=== PATIENT | female | born 1985 ===

== ENCOUNTER 2017-11-16 23:08 | Observation (INO) | payer MEDICAID ==
--- NOTE | 2017-11-16 23:59 | OBPROG ---
Labor Progress Note Assessment/Plan: Assessment: IUP at 22+wks vaginal bleeding - scant post coital Plan: d/c home 11/16/17 23:56 Subjective/Intrapartum Course: 11/16/17 23:57 Pt reports small, drop size clot in toilet this evening. No cramps. Sex 2 days ago. +FM. no blood on perineum or clothing - FHR Assessment Z[place]ala FHR (bpm): 140 FHR Pattern Variability: Moderate FHR Category: 1 (reassuring monitoring for gestation) Oxytocin Orders Assessment - Pre-Induction/Augmentation Assessment Gestational Age: 22 week(s) and 4 day(s) ICD10 Worksheet Patient Problems: Problems Problem Status Onset Second trimester bleeding Acute
== END 2017-11-17 00:11 | disposition home or self-care (01) ==
LOC: FLD 23:08
PROVIDERS: ADMIT Obstetrics & Gynecology; ATTEND Obstetrics & Gynecology
DX: N93.0 Postcoital and contact bleeding (principal); Z3A.22 22 weeks gestation of pregnancy
CPT/HCPCS: G0378

== ENCOUNTER 2017-11-24 18:16 | Observation (INO) | payer MEDICAID | END 2017-11-24 20:20 | disposition home or self-care (01) | LOC: FLD 18:16 | PROVIDERS: ADMIT Obstetrics & Gynecology; ATTEND Obstetrics & Gynecology | DX: O46.92 Antepartum hemorrhage, unspecified, second trimester (principal); Z3A.23 23 weeks gestation of pregnancy ==

== ENCOUNTER 2018-03-05 02:57 | Inpatient (IN) | payer MEDICAID ==
[2018-03-05] MEDS ORDERED: IBUPROFEN 600 MG TAB PO PRN (03:45)
[2018-03-05] MEDS ORDERED: OLIVE OIL 118 ML BTL MISC PRN (03:45)
[2018-03-05] MEDS ORDERED: EPSOM SALT 454 GM TP PRN (03:45)
[2018-03-05] MEDS ORDERED: LIDOCAINE 1% 300 MG/30 ML SDV SC PRN (03:45)
[2018-03-05] MEDS ORDERED: TERBUTALINE SULFATE 1 MG/ML VIAL IV PRN (03:45)
[2018-03-05] MEDS ORDERED: MISOPROSTOL 200 MCG TAB PR PRN (03:45)
[2018-03-05] MEDS ORDERED: OXYTOCIN/RINGERS LACTATE 1,000 ML IV PRN (03:45)
[2018-03-05] MEDS: LR 1,000 ML IV PRN ×2 (04:00→08:33)
[2018-03-05] MEDS ORDERED: LIDOCAINE 1% 300 MG/30 ML SDV ONE (04:07)
[2018-03-05] MEDS ORDERED: OLIVE OIL 118 ML BTL ONE (04:07)
[2018-03-05] MEDS ORDERED: AMMONIA AROMATIC 1 EACH AMP IH ONE (04:07)
[2018-03-05 04:08] LABS: PLATELET COUNT 230 10^3/uL (150-400)
[2018-03-05] MEDS ORDERED: TERBUTALINE SULFATE 1 MG/ML VIAL ONE (04:08)
[2018-03-05] MEDS ORDERED: MISOPROSTOL 200 MCG TAB ONE (04:08)
[2018-03-05] MEDS ORDERED: OXYTOCIN 10 UNIT/ML VIAL ONE (04:08)
[2018-03-05] MEDS ORDERED: ONDANSETRON 4 MG/2 ML VIAL IVP PRN (04:45)
[2018-03-05] MEDS ORDERED: PHENYLEPHRINE HCL 100 MCG/ML SYR IVP PRN (04:45)
[2018-03-05] MEDS ORDERED: NALOXONE HCL 0.4 MG/ML INJ IVP PRN (04:45)
[2018-03-05] MEDS ORDERED: PHENYLEPHRINE HCL 100 MCG/ML SYR ONE (04:51)
[2018-03-05] MEDS ORDERED: fentaNYL 100 MCG/2 ML INJ ONE (04:51)
[2018-03-05] MEDS ORDERED: BUPIVACAINE 0.25% 30 ML SDV ONE (04:51)
[2018-03-05] MEDS ORDERED: fentaNYL 2MCG/ML/BUP 0.1% RTU 100 ML EP SCH (05:00)
[2018-03-05] MEDS ORDERED: LR 500 ML IV SCH (05:00)
[2018-03-05] MEDS ORDERED: fentaNYL 200 MCG, BUPIVACAINE 0.5% 20 ML in NS 100 ML EP SCH (05:00)
--- NOTE | 2018-03-05 05:43 | PREANESOB ---
Obstetric Pre-Anesthesia Info - General Info Proposed Procedure: labor : 2 Para: 1 JENNY: 03/18/18 Gestational Age: 38 week(s) and 1 day(s) - Info Status: Full Term Monitors: External FHR Pattern: Reassuring (see OB provider notes for more detail on labor status) - Labor Status Cervical Dilation per last OB SVE: 9 Indications for Labor Analgesia: Pain Control Labor Epidural: Proposed Anesthesia ROS: ess wnl, previous labor epidural, no hx of GA, neg Fam Hx, NKDA, only med is PNV , see OBTV for VS Allergies/Adverse Reactions: Allergy/AdvReac Type Severity Reaction Status Date / Time No Known Allergies Allergy Unverified 11/16/17 23:27 Home Medications: Medication Instructions Recorded 1 tab PO DAILY 11/16/17 Visit Medications: Generic Name Dose Route Start Last Admin Trade Name Freq PRN Reason Stop Dose Admin Diphenhydramine HCl 25 - 50 mg 03/05/18 04:45 Benadryl Injection IVP 09/01/18 04:44 Q6HRS PRN Itching Ephedrine Sulfate 10 mg 03/05/18 04:45 Ephedrine Sulfate IV 09/01/18 04:44 .Q2M PRN Hypotension Lactated Ringer's 1,000 mls @ 0 mls/hr 03/05/18 03:45 Lr IV 03/06/18 03:44 PRN PRN SEE PROTOCOL CONDITIONS Protocol Per Protocol Oxytocin/Lactated Ringer's 1,000 mls @ 125 mls/hr 03/05/18 03:45 Pitocin 20 Units/Lr (Premix) IV PRN PRN Post bleeding Lactated Ringer's 500 mls @ 0 mls/hr 03/05/18 05:00 Lr IV 09/01/18 04:59 CONT PEG As Directed Fentanyl 200 mcg/ Bupivacaine 100 mls @ 0 mls/hr 03/05/18 05:00 HCl 20 ml/ Sodium Chloride EP 03/15/18 04:59 CONT PEG Protocol As Directed Ibuprofen 600 mg 03/05/18 03:45 Motrin PO ONCE PRN post , pain Lidocaine HCl 300 mg 03/05/18 03:45 Lidocaine Hcl 1% SC 09/01/18 03:44 ONCE PRN episiotomy Magnesium Sulfate 454 gm 03/05/18 03:45 Epsom Salt TP 09/01/18 03:44 Q1H PRN perineal discomfort Misoprostol 800 - 1,000 mcg 03/05/18 03:45 Cytotec DE ONCE PRN Vaginal Atony/Bleeding Naloxone HCl 0.4 mg 03/05/18 04:45 Narcan IVP 09/01/18 04:44 PRN PRN Respiratory depression [place] Oil 118 ml 03/05/18 03:45 Sweet Oil MISC 09/01/18 03:44 ONCE PRN perineal massage Ondansetron HCl 4 mg 03/05/18 04:45 Zofran IVP 03/06/18 04:44 Q4HRS PRN Nausea/Vomiting, Can't Take PO Phenylephrine HCl 100 mcg 03/05/18 04:45 Neosynephrine IVP 09/01/18 04:44 .Q2M PRN Hypotension Terbutaline Sulfate 0.25 mg 03/05/18 03:45 Brethine IV 09/01/18 03:44 ONCE PRN Tachysystole Discontinued Medications Generic Name Dose Route Start Last Admin Trade Name Freq PRN Reason Stop Dose Admin Ammonia (Aromatic Spirit) Confirm 03/05/18 04:07 Ammonia Aromatic Administered 03/05/18 04:08 Dose 1 each IH .STK-MED ONE Bupivacaine HCl Confirm 03/05/18 04:51 Sensorcaine 0.25% Sdv Administered 03/05/18 04:52 Dose 30 ml .ROUTE .STK-MED ONE Fentanyl Confirm 03/05/18 04:51 Sublimaze Administered 03/05/18 04:52 Dose 100 mcg .ROUTE .STK-MED ONE Lidocaine HCl Confirm 03/05/18 04:07 Lidocaine Hcl 1% Administered 03/05/18 04:08 Dose 300 mg .ROUTE .STK-MED ONE Misoprostol Confirm 03/05/18 04:08 Cytotec Administered 03/05/18 04:09 Dose 1,000 mcg .ROUTE .STK-MED ONE [place] Oil Confirm 03/05/18 04:07 Sweet Oil Administered 03/05/18 04:08 Dose 118 ml .ROUTE .STK-MED ONE Oxytocin Confirm 03/05/18 04:08 Pitocin Administered 03/05/18 04:09 Dose 40 unit .ROUTE .STK-MED ONE Phenylephrine HCl Confirm 03/05/18 04:51 Neosynephrine Administered 03/05/18 04:52 Dose 1,000 mcg .ROUTE .STK-MED ONE Terbutaline Sulfate Confirm 03/05/18 04:08 Brethine Administered 03/05/18 04:09 Dose 1 mg .ROUTE .STK-MED ONE - Anesthesia History Response to Local Anesthetics: Normal Anesthesia & Operative History: No Prior Problems Family Anesthesia History: Negative - Social History Substance Use/Abuse: Denies - Vital Signs Height/Weight (Nursing): Height 167.64 cm Weight 66.678 kg - Focused Exam Neck exam: FROM Mallampati Score: Class 2 Mouth exam: normal dental/mouth exam Pulmonary: no respiratory distress Cardiovascular: regular rate and rhythym Labs: 03/05/18 03:45 Patient ABO/Rh O POSITIVE 03/05/18 03:45 - Plan Anesthetic Plan: cse Consent Signed and on Chart: Yes Patient/Guardian Understands and Agrees to Plan: Yes Urgent/Emergent Case: Alyson reinoso completed preop but documented later for safe timely pt care
--- NOTE | 2018-03-05 05:45 | POSTANESTH ---
Post Anesthetic Evaluation Cardiovascular Status: Normal, Stable Respiratory Status: Normal, Stable Level of Consciousness/Mental Status: Can Participate in Eval Pain Control: Adequate, Prn Tx Ordered Nausea/Vomiting Control: Adequate, Prn Tx Ordered Complications Possibly Related to Anesthesia: None Noted (advanced labor (9+), mary CSE well, comfortable)
--- NOTE | 2018-03-05 05:53 | PDGENHP ---
History and Physical History and Physical: [facility] H[facility]: Patient is a 32 yo G 2P1 at 38.1 weeks ega who presents to L&D with complaints of painful contractions since 0100 today. She states baby is active and denies vaginal bleeding. Membranes ruptured during exam by RN on admission - mod amt clear fluid. SVE 890/0 station. She was planning to go to [facility] for delivery but was worried she wouldn't make it, so came to [facility] instead. EDC: 03/18/18 which is based on LMP of 06/11/17: which is known and consistent with Ultrasound at 7 weeks. Her is complicated by: Gestational Diabetes - diet controlled Review of Systems: Constitutional: Denies any fever, chills, or fatigue HEENT: denies any visual changes, difficulty swallowing, hearing loss Cardiovascular: Denies any chest pain, palpitations, leg swelling Respiratory: denies any cough, wheezing, or shortness of breathe GI: Denies any nausea, vomiting, diarrhea, constipation : denies any dysuria, urgency, frequency, vaginal bleeding Musculoskeletal: denies any muscle or bone pain Skin: denies any rashes Neuro: denies any headache, seizures, lightheadedness, dizziness, or loss of consciousness Psychiatric: denies any depression, anxiety, or SI/HI thoughts HISTORY: Previous OB history: 2008 Past medical history: none Past surgical history: none Medications: PNV, iron Allergies (list reaction): NKDA LABS: Rh: O pos ABS: Neg Rubella: Immune HbsAg: NR HIV: NR VDRL: NR 1hr: patient reports she was dx with gestational diabetes - do not have lab results on records provided GC: Neg Chlamydia: Neg Pap: Normal GBS: neg PHYSICAL EXAM: Constitutional: WN, A&Ox3 HEENT: normocephalic atraumatic, supple Heart: RRR, no murmur Chest: CTA-B Abdomen: Soft, nontender, gravid SVE: 8/100/0 Extremities: sml pedal edema, negative louie's sign Neuro: grossly normal Psych: normal affect assessment: Reassuring FHTs, baseline 140s +accels, no decels, moderate variability Contractions: toco q 2-3 mod/firm Assessment: 1) 32 yo G 2 P1 with IUP@38.1 weeks ega 2) active labor 3) GBS neg 4) Cat 1 FHR tracing 5) Gestational diabetic - diet controlled, initial blood sugar check on admission 95 Plan: 1) Admit to L&D 2) Pain control as patient desires 3) Monitor blood sugars q 2 hour 4) anticipate
--- NOTE | 2018-03-05 07:27 | OBPROG ---
Labor Progress Note Assessment/Plan: Assessment: 32 y/o at 38.1 weeks ega - complete/0 station at 0612 Pushed for 45 minutes with very little descent. Baby is LOP. Will stop pushing and reposition patient on side with peanut ball to labor down and facilitate rotation. FHT category 2 - intermittent variable decels but reassuring with mod variability and accels present. Cntx q 2-3. Plan: Report to Dr Mohr 03/05/18 07:21 03/05/18 07:33 Objective: 03/05/18 03:45 Patient ABO/Rh O POSITIVE 03/05/18 03:45 - SVE Dilation (cm): 10 Station: 0 Dilation Complete Date: 03/05/18 Dilation Complete Time: 06:12 - Contraction Pattern Assessment Current Contraction Pattern: Regular Oxytocin Orders Assessment - Pre-Induction/Augmentation Assessment Gestational Age: 38 week(s) and 1 day(s) ICD10 Worksheet Patient Problems: Problems Problem Status Onset Second trimester bleeding Acute
--- NOTE | 2018-03-05 08:05 | OBPROG ---
Labor Progress Note Assessment/Plan: Assessment: Baby does seem to be in direct OP position. Will continue to hold off on pushing, try peanut ball and position changes, then push again. Subjective/Intrapartum Course: 03/06/18 03:11 Met with Rosi and her partner this AM when coming on at 7am. Comfortable, a little frustrated not delivered yet. Objective: 03/05/18 03:45 Patient ABO/Rh O POSITIVE 03/05/18 03:45 - SVE Dilation (cm): 10 Effacement (%): 100 Station: +2 Membranes: SROM Amniotic Fluid Color: Meconium Stained Dilation Complete Date: 03/05/18 Dilation Complete Time: 06:12 - Contraction Pattern Assessment Current Contraction Pattern: Regular - FHR Assessment Z[place]ala FHR (bpm): 130 FHR Pattern Variability: Moderate FHR Category: 2 Oxytocin Orders Assessment - Pre-Induction/Augmentation Assessment Gestational Age: 38 week(s) and 1 day(s) ICD10 Worksheet Patient Problems: Problems Problem Status Onset Second trimester bleeding Acute
[2018-03-05] MEDS ORDERED: HYDROCORTISONE 0.5% CREAM TP PRN (12:27)
[2018-03-05] MEDS ORDERED: SIMETHICONE 80 MG TAB CHEW PO PRN (12:27)
[2018-03-05] MEDS ORDERED: HYDROCODONE/APAP 5/325 TAB PO PRN (12:27)
[2018-03-05] MEDS ORDERED: DOCUSATE SODIUM 100 MG CAP PO PRN (12:27)
[2018-03-05] MEDS ORDERED: ACETAMINOPHEN 325 MG TAB PO PRN (12:27)
--- NOTE | 2018-03-05 12:27 | OBDEL ---
Info Type: Vaginal Presentation at Delivery: Vertex (Direct OP) L&D Analgesia/Anesthesia Type: Epidural GBS+: No Intrapartum Medications: Generic Name Dose Route Start Last Admin Trade Name Frerichar PRN Reason Stop Dose Admin Lactated Ringer's 1,000 mls @ 0 mls/hr 03/05/18 03:45 03/05/18 08:33 Lr IV 03/06/18 03:44 1,000 mls PRN PRN Administration SEE PROTOCOL CONDITIONS Protocol Per Protocol Discontinued Medications Generic Name Dose Route Start Last Admin Trade Name Frerichar PRN Reason Stop Dose Admin Fentanyl 200 mcg/ Bupivacaine 100 mls @ 0 mls/hr 03/05/18 05:00 03/05/18 07: 39 HCl 20 ml/ Sodium Chloride EP 03/15/18 04:59 100 mls CONT PEG Administration Protocol As Directed Ibuprofen 600 mg 03/05/18 03:45 03/05/18 11:14 Motrin PO 600 mg ONCE PRN Administration post , pain Indications for Delivery: Spontaneous Labor Vaginal Delivery - Delivery Provider Delivery Physician/CNM: Woody Mohr - Labor and Delivery Onset of Contractions Date: 03/04/18 Onset of Contractions Time: 03:00 Rupture of Membranes Date: 03/05/18 Rupture of Membranes Time: 04:00 Dilation Complete Date: 03/05/18 Dilation Complete Time: 06:12 Placenta Delivery Date: 03/05/18 Placenta Delivery Time: 10:15 Total Hours of Labor: 31 Laceration: Other (Specify) (Bilat labial) Repair: 4-0, Vicryl Vaginal Sponge Count Correct: Yes Vaginal Needle Count Correct: Yes Vaginal Sweep Performed: Yes EBL: 200cc Delivery Events: None, Nuchal Cord (x1, loose and reduced) Delivery Comment: Delivered direct OP position, single nuchal cord - Medications Labor Augmentation/Induction Methods Used: Pitocin Labor Augmentation/Induction Indication: Contraction Strength Inadequate [place] Data JENNY: 03/18/18 Gestational Age: 38 week(s) and 2 day(s) Z[place]ala Delivery Date: 03/05/18 Delivery Time: 10:11 Sex of Infant: Female [place] Weight (gm): 0 g Score (1 Min): 8 Score (5 Min): 9 ICD10 Worksheet Patient Problems: Problems Problem Status Onset Second trimester bleeding Acute
[2018-03-05] MEDS: IBUPROFEN 600 MG TAB PO PRN (19:44)
[2018-03-06] MEDS: IBUPROFEN 600 MG TAB PO PRN ×2 (04:32→10:06)
--- NOTE | 2018-03-06 08:09 | POSTANESTH ---
Post Anesthetic Evaluation Cardiovascular Status: Normal, Stable Respiratory Status: Normal, Stable Level of Consciousness/Mental Status: Can Participate in Eval Pain Control: Adequate, Prn Tx Ordered Nausea/Vomiting Control: Adequate, Prn Tx Ordered Complications Possibly Related to Anesthesia: None Noted (uneventful resolution of epidural)
[2018-03-06 09:00] VITALS: BP 118/64
--- NOTE | 2018-03-06 11:01 | OBGCSDC ---
General Delivery Information - General Info : 2 Para: 2 Abortions: 0 Type: Vaginal L&D Analgesia/Anesthesia Type: Epidural Admission Date: 03/05/18 Labs: Patient ABO/Rh O POSITIVE 03/05/18 03:45 Hct 33.2 % (38.0-47.0) L 03/06/18 04:30 - Hospital Course : 03/06/18 11:00 S) Pt doing well, reports min pain and bleeding. she is ambulating and voiding without difficulty. She is . She desires discharge home today. O) VSS, afebrile constitutional: WNWF, A&Ox3 HEENT: normocephalic, atraumatic, supple Heart: RRR, No murmur Chest: CTA-B Abdomen: Soft, nontender Uterus: Firm at U-2 Lochia: Minimal rubra Perineum: Intact, healing well Extremities: Trace edema, and negative Demar's sign Neuro: Grossly normal A) 32-year-old S/P PPD#1 tobacco user anemia P) Discharge home today tobacco use discussed in great detail- discussed increased risks of SIDS Continue PO iron Pelvic rest x6wks Discussed danger signs (infection, preeclampsia, depression, heavy bleeding, etc ) RTO in 2/4/6 weeks Vaginal - Delivery Provider Delivery Physician/CNM: Woody Mohr - Diagnosis Amniotic Fluid Color: Meconium Stained Laceration: Other (Specify) (Bilat labial) Repair: 4-0, Vicryl Delivery Events: None, Nuchal Cord (x1, loose and reduced) - Delivery EBL: 200cc Data JENNY: 03/18/18 Gestational Age: 38 week(s) and 2 day(s) Zavala Delivery Date: 03/05/18 Delivery Time: 10:11 Sex of Infant: Female [place] Weight (gm): 0 g Score (1 Min): 8 Score (5 Min): 9 Discharge Information - Discharge Information Condition: Good Instruction/Follow Up: Two Weeks, Four Weeks, Six Weeks
== END 2018-03-06 12:00 | disposition home or self-care (01) | DRG 560 ==
LOC: FLD 02:57 → OBSVTOIN 03:45 → FOB 15:08
PROVIDERS: ADMIT Advanced Practice Midwife; ATTEND Advanced Practice Midwife
PROC: 0HQ9XZZ Repair Perineum Skin, External Approach (ICD-10-PCS; principal; 2018-03-05)
PROC: 10E0XZZ Delivery of Products of Conception, External Approach (ICD-10-PCS; principal; 2018-03-05)
DX: O24.410 Gestational diabetes mellitus in pregnancy, diet controlled (principal); O69.82X0 Labor and delivery complicated by other cord entanglement, without compression, not applicable or unspecified; Z37.0 Single live birth; Z3A.38 38 weeks gestation of pregnancy; O70.0 First degree perineal laceration during delivery
CPT/HCPCS: J2370; J2590; J3010; J3105